=== PATIENT | male | born 1950 | race Two or more races ===

== ENCOUNTER 2017-08-04 07:17 | Outpatient (CLI) | payer OTHER | END 2017-08-04 12:24 | disposition home or self-care (01) | LOC: SONOGRAMA 07:17 | DX: E04.1 Nontoxic single thyroid nodule (principal) ==

== ENCOUNTER 2017-11-03 08:31 | Outpatient (CLI) | payer OTHER | END 2017-11-03 08:37 | disposition home or self-care (01) | LOC: SONOGRAMA 08:31 | DX: E04.1 Nontoxic single thyroid nodule (principal) ==